=== PATIENT | male | born 1995 | race Caucasian/White ===

== ENCOUNTER 2022-04-22 02:32 | Emergency (ER) | payer SELFPAY ==
[~2022-04-22] VITALS: Ht 160 cm; Wt 73.0 kg
[2022-04-22 02:48] VITALS: BP 109/54
[2022-04-22] MEDS ORDERED: TOPUD PO (08:50)
[2022-04-22] MEDS ORDERED: AMOX1TAB16 PO (08:50)
[2022-04-22] MEDS ORDERED: CHLO473M2 PO (08:50)
== END 2022-04-22 09:01 | disposition home or self-care (01) ==
LOC: ER 02:32
DX: S02.2XXA Fracture of nasal bones, initial encounter for closed fracture (principal); Y08.89XA Assault by other specified means, initial encounter; Y93.89 Activity, other specified; Y92.89 Other specified places as the place of occurrence of the external cause; Y99.8 Other external cause status
CPT/HCPCS: 70486; 99284